=== PATIENT | male | born 1955 | race Caucasian/White ===

== ENCOUNTER 2020-09-14 10:09 | Inpatient (IN) ==
[2020-09-14 10:51] LABS: Basophils % 0.5 % (0.0-0.8); Eosinophils # 0.1 10*3/uL (0.0-0.87); Eosinophils % 0.8 % (0.00-10.9); Hematocrit 39.8 VOL% (42.0-52.0); Hemoglobin 13.3 GM/DL (14.0-18.0); Immature Granulocytes % 0.6 %; Immature Granulocytes Absolute 0.05 #; Lymphocytes # 2.7 10*3/uL (1.4-4.0); Lymphocytes % 32.3 % (21.2-54.2); Mean Corpuscular HGB Conc 33.4 GM/DL (32-36); Mean Corpuscular Volume 92.8 FL (87-102); Mean Platelet Volume 10.3 FL (9.6-12.0); Monocytes % 4.3 % (1.7-12.7); Neutrophils % 61.5 % (38.7-73.9); Platelet Count 251 T/CUMM (130-400); Red Blood Count 4.29 MC/CUMM (3.8-5.5); Red Cell Distribution Width 12.8 % (9.3-17.3); White Blood Count 8.3 T/CUMM (4-12)
[2020-09-14] MEDS ORDERED: SODIUM CHLORIDE 0.9% 1,000 ML IV STA (10:55)
[2020-09-14 11:13] LABS: Albumin 3.4 G/DL (3.4-5.0); Bilirubin,Total 1.1 MG/DL (0.2-1.0); Calcium 8.3 MG/DL (8.5-10.1); Osmolality,Calculated 288.3 MOS/KG (273-304); Potassium 5.2 MMOL/L (3.5-5.1); Total Protein 6.4 G/DL (6.4-8.2)
[2020-09-14 11:25] LABS: Troponin I < 0.015 NG/ML (0.00-0.045)
[2020-09-14 12:36] LABS: INR 1.4; Partial Thromboplastin Time 30.3 SECS (23.9-33.8)
[2020-09-14] MEDS ORDERED: ACETAMINOPHEN 325 MG TABLET PO PRN (13:24)
[2020-09-14] MEDS ORDERED: GLUCAGON 1 MG VIAL IM PRN (13:24)
[2020-09-14] MEDS ORDERED: DEXTROSE 50% 25 GM/50 ML VIAL IV PRN (13:24)
[2020-09-14] MEDS ORDERED: DOCUSATE SODIUM 100 MG CAPSULE PO PRN (13:24)
[2020-09-14] MEDS ORDERED: ONDANSETRON 4 MG/2 ML VIAL IV PRN (13:24)
[2020-09-14] MEDS ORDERED: hydrALAZINE 20 MG/1 ML VIAL IV PRN (13:24)
[2020-09-14 14:02] LABS: Hematocrit 38.4 VOL% (42.0-52.0); Hemoglobin 12.8 GM/DL (14.0-18.0)
[2020-09-14] MEDS: PANTOPRAZOLE 40 MG VIAL IV SCH (14:06)
[2020-09-14 16:20] LABS: Calcium 8.2 MG/DL (8.5-10.1); Osmolality,Calculated 292.8 MOS/KG (273-304); Potassium 4.7 MMOL/L (3.5-5.1)
[2020-09-14] MEDS: SODIUM CHLORIDE 0.9% 1,000 ML IV SCH (17:00)
[2020-09-14 21:56] LABS: Hematocrit 35.1 VOL% (42.0-52.0); Hemoglobin 11.7 GM/DL (14.0-18.0)
[2020-09-15] MEDS: SODIUM CHLORIDE 0.9% 1,000 ML IV SCH ×3 (03:52→23:40)
[2020-09-15 05:38] LABS: Basophils # 0.1 10*3/uL (0.0-0.2); Basophils % 0.7 % (0.0-0.8); Eosinophils # 0.1 10*3/uL (0.0-0.87); Eosinophils % 1.1 % (0.00-10.9); Hematocrit 33.2 VOL% (42.0-52.0); Hemoglobin 11.5 GM/DL (14.0-18.0); Immature Granulocytes % 0.1 %; Immature Granulocytes Absolute 0.01 #; Mean Corpuscular HGB Conc 34.6 GM/DL (32-36); Mean Corpuscular Volume 90.7 FL (87-102); Mean Platelet Volume 10.2 FL (9.6-12.0); Monocytes % 6.3 % (1.7-12.7); Neutrophils % 49.8 % (38.7-73.9); Platelet Count 200 T/CUMM (130-400); Red Blood Count 3.66 MC/CUMM (3.8-5.5); Red Cell Distribution Width 12.9 % (9.3-17.3)
[2020-09-15 06:04] LABS: Albumin 3.2 G/DL (3.4-5.0); Bilirubin,Total 1.2 MG/DL (0.2-1.0); Calcium 8.2 MG/DL (8.5-10.1); Potassium 3.9 MMOL/L (3.5-5.1); Risk Ratio 3.12; Total Protein 5.6 G/DL (6.4-8.2)
[2020-09-15] MEDS: PANTOPRAZOLE 40 MG VIAL IV SCH (08:38)
[2020-09-15 17:02] LABS: Hematocrit 36.7 VOL% (42.0-52.0)
[2020-09-15] MEDS ORDERED: PANTOPRAZOLE 40 MG VIAL IV SCH (21:00)
[2020-09-16 05:20] LABS: Basophils % 0.5 % (0.0-0.8); Eosinophils # 0.2 10*3/uL (0.0-0.87); Hematocrit 32.5 VOL% (42.0-52.0); Hemoglobin 10.8 GM/DL (14.0-18.0); Immature Granulocytes % 0.4 %; Immature Granulocytes Absolute 0.03 #; Lymphocytes # 2.9 10*3/uL (1.4-4.0); Lymphocytes % 39.4 % (21.2-54.2); Mean Corpuscular HGB Conc 33.2 GM/DL (32-36); Mean Corpuscular Volume 93.4 FL (87-102); Mean Platelet Volume 10.2 FL (9.6-12.0); Monocytes % 5.5 % (1.7-12.7); Neutrophils % 52.2 % (38.7-73.9); Platelet Count 209 T/CUMM (130-400); Red Blood Count 3.48 MC/CUMM (3.8-5.5); Red Cell Distribution Width 12.7 % (9.3-17.3); White Blood Count 7.4 T/CUMM (4-12)
[2020-09-16 05:55] LABS: Microcytosis 1+
[2020-09-16 05:56] LABS: Ovalocytes Slight; Platelet Estimate Normal
[2020-09-16 05:57] LABS: Osmolality,Calculated 284.1 MOS/KG (273-304)
[2020-09-16] MEDS: SODIUM CHLORIDE 0.9% 1,000 ML IV SCH (06:41)
[2020-09-16] MEDS: LACTATED RINGERS 1,000 ML IV SCH (07:23)
[2020-09-16] MEDS ORDERED: propofoL 200 MG/20 ML VIAL IV ONE ×2 (08:11→08:25)
[2020-09-16] MEDS ORDERED: LIDOCAINE 2% 5 ML VIAL ONE ×2 (08:11→08:25)
[2020-09-16] MEDS ORDERED: PHENYLEPHRINE 1 MG/10 ML SYRINGE IV ONE (08:25)
[2020-09-16] MEDS ORDERED: LOPERAMIDE 2 MG CAPSULE PO ONE (16:30)
[2020-09-16 16:59] LABS: Hematocrit 35.5 VOL% (42.0-52.0); Hemoglobin 11.5 GM/DL (14.0-18.0)
[2020-09-16] MEDS: PANTOPRAZOLE 40 MG TABLET PO SCH (17:51)
[2020-09-17 05:51] LABS: Basophils % 0.3 % (0.0-0.8); Eosinophils # 0.2 10*3/uL (0.0-0.87); Eosinophils % 2.4 % (0.00-10.9); Hematocrit 29.2 VOL% (42.0-52.0); Hemoglobin 9.8 GM/DL (14.0-18.0); Immature Granulocytes % 0.3 %; Immature Granulocytes Absolute 0.02 #; Lymphocytes # 2.6 10*3/uL (1.4-4.0); Lymphocytes % 40.7 % (21.2-54.2); Mean Corpuscular HGB Conc 33.6 GM/DL (32-36); Mean Corpuscular Volume 91.8 FL (87-102); Mean Platelet Volume 10.4 FL (9.6-12.0); Monocytes % 6.7 % (1.7-12.7); Neutrophils % 49.6 % (38.7-73.9); Platelet Count 212 T/CUMM (130-400); Red Blood Count 3.18 MC/CUMM (3.8-5.5); Red Cell Distribution Width 12.6 % (9.3-17.3); White Blood Count 6.3 T/CUMM (4-12)
[2020-09-17 06:12] LABS: Calcium 8.2 MG/DL (8.5-10.1); Osmolality,Calculated 285.1 MOS/KG (273-304); Potassium 4.2 MMOL/L (3.5-5.1)
[2020-09-17] MEDS: PANTOPRAZOLE 40 MG TABLET PO SCH (06:45)
[2020-09-17] MEDS: LACTATED RINGERS 1,000 ML IV SCH (07:31)
[2020-09-17 07:34] VITALS: BP 131/78
== END 2020-09-17 12:00 | disposition home or self-care (01) | DRG 378 ==
LOC: N.ED 10:09 → N.EDINP 10:09 → N.5E 14:27
PROVIDERS: ADMIT Internal Medicine; ATTEND Internal Medicine

== ENCOUNTER 2020-09-18 11:25 | Inpatient (IN) ==
[2020-09-18] MEDS ORDERED: SODIUM CHLORIDE 0.9% 1,000 ML IV STA (12:00)
[2020-09-18 12:05] LABS: Basophils % 0.4 % (0.0-0.8); Eosinophils # 0.1 10*3/uL (0.0-0.87); Eosinophils % 1.2 % (0.00-10.9); Hematocrit 25.4 VOL% (42.0-52.0); Hemoglobin 8.5 GM/DL (14.0-18.0); Lymphocytes # 3.3 10*3/uL (1.4-4.0); Lymphocytes % 31.2 % (21.2-54.2); Mean Corpuscular HGB Conc 33.5 GM/DL (32-36); Mean Platelet Volume 10.7 FL (9.6-12.0); Monocytes % 4.5 % (1.7-12.7); Neutrophils % 61.7 % (38.7-73.9); Platelet Count 252 T/CUMM (130-400); Red Blood Count 2.76 MC/CUMM (3.8-5.5); Red Cell Distribution Width 12.7 % (9.3-17.3); White Blood Count 10.5 T/CUMM (4-12)
[2020-09-18 12:22] LABS: Albumin 3.1 G/DL (3.4-5.0); Bilirubin,Total 0.4 MG/DL (0.2-1.0); Calcium 7.9 MG/DL (8.5-10.1); Osmolality,Calculated 286.4 MOS/KG (273-304); Potassium 3.6 MMOL/L (3.5-5.1); Total Protein 5.6 G/DL (6.4-8.2)
[2020-09-18 12:25] LABS: PT Patient Result 11.2 SECS (9.8-11.9)
[2020-09-18 12:31] LABS: Partial Thromboplastin Time < 20.0 SECS (23.9-33.8)
[2020-09-18 12:41] LABS: Eosinophils 1 % (0-10); Lymphocytes 34 % (20-55); Segmented Neutrophils 59 % (50-85); Total Cells Counted 100
[2020-09-18 12:42] LABS: Platelet Estimate Adequate; Reactive Lymphocytes 1+
[2020-09-18] MEDS ORDERED: ZALEPLON 5 MG CAPSULE PO PRN (15:07)
[2020-09-18] MEDS ORDERED: GLUCAGON 1 MG VIAL IM PRN (15:07)
[2020-09-18] MEDS ORDERED: ALUMINUM/MAGNES/SIMETH MAX STR 30 ML UDCUP PO PRN (15:07)
[2020-09-18] MEDS ORDERED: DEXTROSE 50% 25 GM/50 ML VIAL IV PRN (15:07)
[2020-09-18] MEDS ORDERED: DOCUSATE SODIUM 100 MG CAPSULE PO PRN (15:07)
[2020-09-18] MEDS ORDERED: ONDANSETRON 4 MG/2 ML VIAL IV PRN (15:07)
[2020-09-18] MEDS ORDERED: SODIUM CHLORIDE 0.9% 1,000 ML IV PRN (15:16)
[2020-09-18] MEDS: SODIUM CHLORIDE 0.9% 1,000 ML IV SCH ×3 (16:05→22:39)
[2020-09-18] MEDS: PANTOPRAZOLE 40 MG TABLET PO SCH (18:12)
[2020-09-19 06:11] LABS: Basophils % 0.3 % (0.0-0.8); Eosinophils # 0.1 10*3/uL (0.0-0.87); Eosinophils % 0.5 % (0.00-10.9); Hematocrit 24.4 VOL% (42.0-52.0); Hemoglobin 8.2 GM/DL (14.0-18.0); Immature Granulocytes % 0.7 %; Immature Granulocytes Absolute 0.06 #; Lymphocytes # 3.6 10*3/uL (1.4-4.0); Lymphocytes % 39.1 % (21.2-54.2); Mean Corpuscular HGB Conc 33.6 GM/DL (32-36); Mean Corpuscular Volume 92.1 FL (87-102); Mean Platelet Volume 10.7 FL (9.6-12.0); Monocytes % 5.7 % (1.7-12.7); Neutrophils % 53.7 % (38.7-73.9); Platelet Count 191 T/CUMM (130-400); Red Blood Count 2.65 MC/CUMM (3.8-5.5); Red Cell Distribution Width 13.8 % (9.3-17.3); White Blood Count 9.2 T/CUMM (4-12)
[2020-09-19] MEDS: PANTOPRAZOLE 40 MG TABLET PO SCH ×2 (06:18→19:23)
[2020-09-19 06:47] LABS: Osmolality,Calculated 290.7 MOS/KG (273-304); Potassium 3.8 MMOL/L (3.5-5.1)
[2020-09-19 07:14] LABS: Anisocytosis 1+; Band Neutrophils 3 % (0-10); Eosinophils 2 % (0-10); Lymphocytes 35 % (20-55); Macrocytosis Slight; Platelet Estimate Normal; Segmented Neutrophils 56 % (50-85); Total Cells Counted 100
[2020-09-19] MEDS ORDERED: SODIUM CHLORIDE 0.9% 1,000 ML IV PRN (10:09)
[2020-09-19] MEDS: SODIUM CHLORIDE 0.9% 1,000 ML IV SCH (14:50)
[2020-09-19] MEDS: PANTOPRAZOLE 40 MG VIAL IV SCH ×2 (16:13→21:01)
[2020-09-19 16:28] LABS: Basophils % 0.4 % (0.0-0.8); Eosinophils # 0.1 10*3/uL (0.0-0.87); Eosinophils % 1.6 % (0.00-10.9); Hematocrit 26.7 VOL% (42.0-52.0); Immature Granulocytes % 0.4 %; Immature Granulocytes Absolute 0.03 #; Lymphocytes # 3.3 10*3/uL (1.4-4.0); Lymphocytes % 43.8 % (21.2-54.2); Mean Corpuscular HGB Conc 33.7 GM/DL (32-36); Mean Corpuscular Volume 89.6 FL (87-102); Monocytes % 5.7 % (1.7-12.7); Neutrophils % 48.1 % (38.7-73.9); Platelet Count 190 T/CUMM (130-400); Red Blood Count 2.98 MC/CUMM (3.8-5.5); Red Cell Distribution Width 14.9 % (9.3-17.3); White Blood Count 7.6 T/CUMM (4-12)
[2020-09-20 05:34] LABS: Basophils % 0.5 % (0.0-0.8); Eosinophils # 0.2 10*3/uL (0.0-0.87); Eosinophils % 2.8 % (0.00-10.9); Hemoglobin 8.6 GM/DL (14.0-18.0); Immature Granulocytes % 0.8 %; Immature Granulocytes Absolute 0.05 #; Lymphocytes # 2.5 10*3/uL (1.4-4.0); Lymphocytes % 41.9 % (21.2-54.2); Mean Corpuscular HGB Conc 33.1 GM/DL (32-36); Mean Corpuscular Volume 90.3 FL (87-102); Mean Platelet Volume 10.1 FL (9.6-12.0); Monocytes % 5.9 % (1.7-12.7); Neutrophils % 48.1 % (38.7-73.9); Platelet Count 198 T/CUMM (130-400); Red Blood Count 2.88 MC/CUMM (3.8-5.5); Red Cell Distribution Width 15.1 % (9.3-17.3)
[2020-09-20 05:50] LABS: Calcium 7.9 MG/DL (8.5-10.1); Osmolality,Calculated 286.7 MOS/KG (273-304)
[2020-09-20] MEDS: SODIUM CHLORIDE 0.9% 1,000 ML IV SCH (05:51)
[2020-09-20] MEDS: PANTOPRAZOLE 40 MG TABLET PO SCH ×2 (05:52→18:10)
[2020-09-20 06:49] LABS: Eosinophils 4 % (0-10); Lymphocytes 47 % (20-55); Segmented Neutrophils 49 % (50-85); Total Cells Counted 100
[2020-09-20 06:50] LABS: Platelet Estimate Adequate
[2020-09-20] MEDS: PANTOPRAZOLE 40 MG VIAL IV SCH ×2 (08:38→20:38)
[2020-09-21 06:08] LABS: Basophils % 0.5 % (0.0-0.8); Eosinophils # 0.2 10*3/uL (0.0-0.87); Eosinophils % 3.6 % (0.00-10.9); Hematocrit 27.4 VOL% (42.0-52.0); Hemoglobin 9.3 GM/DL (14.0-18.0); Immature Granulocytes % 0.5 %; Immature Granulocytes Absolute 0.03 #; Lymphocytes % 36.9 % (21.2-54.2); Mean Corpuscular HGB Conc 33.9 GM/DL (32-36); Mean Corpuscular Volume 88.7 FL (87-102); Mean Platelet Volume 10.1 FL (9.6-12.0); Monocytes % 7.7 % (1.7-12.7); Neutrophils % 50.8 % (38.7-73.9); Platelet Count 223 T/CUMM (130-400); Red Blood Count 3.09 MC/CUMM (3.8-5.5); White Blood Count 5.5 T/CUMM (4-12)
[2020-09-21] MEDS: SODIUM CHLORIDE 0.9% 1,000 ML IV SCH (06:24)
[2020-09-21] MEDS: PANTOPRAZOLE 40 MG TABLET PO SCH (06:24)
[2020-09-21 06:39] LABS: Calcium 8.3 MG/DL (8.5-10.1); Osmolality,Calculated 282.8 MOS/KG (273-304); Potassium 3.6 MMOL/L (3.5-5.1)
[2020-09-21] MEDS: LACTATED RINGERS 1,000 ML IV SCH (07:30)
[2020-09-21] MEDS ORDERED: propofoL 200 MG/20 ML VIAL IV ONE ×2 (08:39→09:02)
[2020-09-21] MEDS ORDERED: LIDOCAINE 2% 5 ML VIAL ONE (08:39)
[2020-09-21] MEDS: PANTOPRAZOLE 40 MG VIAL IV SCH ×2 (09:54→20:26)
[2020-09-21] MEDS ORDERED: EPINEPHrine 1 MG/ML VIAL ONE (10:02)
[2020-09-21] MEDS: POLYETHYLENE GLYCOL POWDER 17 GM PACK PO SCH (20:21)
[2020-09-22 05:23] LABS: Basophils % 0.4 % (0.0-0.8); Eosinophils # 0.2 10*3/uL (0.0-0.87); Eosinophils % 3.1 % (0.00-10.9); Hematocrit 28.9 VOL% (42.0-52.0); Hemoglobin 9.5 GM/DL (14.0-18.0); Immature Granulocytes % 0.4 %; Immature Granulocytes Absolute 0.02 #; Lymphocytes # 1.9 10*3/uL (1.4-4.0); Lymphocytes % 35.2 % (21.2-54.2); Mean Corpuscular HGB Conc 32.9 GM/DL (32-36); Mean Corpuscular Volume 90.9 FL (87-102); Mean Platelet Volume 10.1 FL (9.6-12.0); Monocytes % 8.6 % (1.7-12.7); Neutrophils % 52.3 % (38.7-73.9); Platelet Count 248 T/CUMM (130-400); Red Blood Count 3.18 MC/CUMM (3.8-5.5); Red Cell Distribution Width 14.8 % (9.3-17.3); White Blood Count 5.5 T/CUMM (4-12)
[2020-09-22 05:36] LABS: Calcium 8.4 MG/DL (8.5-10.1); Potassium 3.7 MMOL/L (3.5-5.1)
[2020-09-22] MEDS ORDERED: IRON (CARBONYL)/VIT C/B12/FA TABLET PO SCH (09:00)
[2020-09-22] MEDS ORDERED: TUBERCULIN SKIN TEST 0.1 ML SYRINGE INTRADERM ONE (09:26)
[2020-09-22] MEDS: PANTOPRAZOLE 40 MG VIAL IV SCH (09:41)
[2020-09-22] MEDS: POLYETHYLENE GLYCOL POWDER 17 GM PACK PO SCH (09:41)
[2020-09-22] MEDS: LACTATED RINGERS 1,000 ML IV SCH (09:42)
[2020-09-22 11:40] VITALS: BP 132/80
== END 2020-09-22 12:16 | disposition home or self-care (01) | DRG 378 ==
LOC: N.ED 11:25 → SUATTDRO 14:24 → N.EDINP 14:24 → N.3E 16:15
PROVIDERS: ADMIT Internal Medicine; ATTEND Hospitalist